=== PATIENT | female | born 1940 | race Caucasian/White ===

== ENCOUNTER 2019-08-11 21:22 | Inpatient (IN) | payer MEDICARE, OTHER ==
[~2019-08-11] VITALS: Ht 149.9 cm; Wt 46.9 kg
[2019-08-11] MEDS ORDERED: SODIUM CHLORIDE 0.9% 1000ML 1,000 ML IV STA (21:50)
[2019-08-11] MEDS ORDERED: CEFTRIAXONE SOD 1 GM/NS 50 ML 50 ML IV ONE (22:00)
[2019-08-11 22:09] LABS: BASOPHILS % 0.3 % (0.0-1.0); EOSINOPHILS # (AUTO) 0.1 (0.0-0.4); EOSINOPHILS % 0.7 % (0.0-6.0); HEMATOCRIT 36.4 % (34.2-44.1); HEMOGLOBIN 11.7 g/dL (12.0-16.0); LYMPHOCYTES % 11.5 % (18.0-39.1); MEAN CORPUSCULAR HEMOGLOBIN 29.3 pg (28-32); MEAN CORPUSCULAR HGB CONC 32.1 g/dL (31-35); MONOCYTES # (AUTO) 1.2 (0.2-0.8); MONOCYTES % 13.5 % (4.4-11.3); NEUTROPHILS # (AUTO) 6.6 (2.1-6.9); NEUTROPHILS % 73.7 % (38.7-80.0); PLATELET COUNT 279 x10e3/uL (140-360); RED CELL DISTRIBUTION WIDTH 15.9 % (11.7-14.4)
[2019-08-11 22:29] LABS: ALANINE AMINOTRANSFERASE 27 IU/L (0-55); ALBUMIN 3.8 g/dL (3.5-5.0); ALBUMIN/GLOBULIN RATIO 1.4 (0.8-2.0); ALKALINE PHOSPHATASE 86 IU/L (40-150); ANION GAP 16.4 mmol/L (8-16); BLOOD UREA NITROGEN 16 mg/dL (7-26); BUN/CREATININE RATIO 21 (6-25); CALCIUM 9.5 mg/dL (8.4-10.2); CARBON DIOXIDE 26 mmol/L (22-29); CHLORIDE 106 mmol/L (98-107); CREATINE KINASE 151 IU/L (29-168); CREATININE, SERUM 0.77 mg/dL (0.57-1.11); EST GLOMERULAR FILTRATION RATE > 60 ML/MIN (60-); GLUCOSE 97 mg/dL (74-118); POTASSIUM 3.4 mmol/L (3.5-5.1); SODIUM 145 mmol/L (136-145)
[2019-08-11 22:57] LABS: CLARITY,URINE CLOUDY (CLEAR); LEUKOCYTE ESTERASE ,URINE TRACE (NEGATIVE)
[2019-08-11 22:58] LABS: BACTERIA,URINE MANY /HPF; BILIRUBIN,URINE SMALL (NEGATIVE); COLOR,URINE AMBER (YELLOW); EPITHELIAL CELLS,URINE MANY /LPF; KETONES,URINE 1+ (NEGATIVE); NITRITE,URINE NEGATIVE (NEGATIVE); PROTEIN,URINE DIPSTICK 1+ (NEGATIVE); URINE UROBILINOGEN 0.2 mg/dL (0.2 - 1); WBC,URINE (MAN) >50 /HPF (0-5)
[2019-08-12] VITALS (9 sets, daily range): BP systolic 125–170; BP diastolic 43–84
--- NOTE | 2019-08-12 00:06 | NUR ---
patient is a new admit that arrived via stretcher. patient is awake and talking. patient has been transferred into the bed. bed is in lowest position and call light is within reach. will continue to monitor patient.
[2019-08-12] MEDS ORDERED: LOPERAMIDE2 MG PO (01:11)
[2019-08-12] MEDS ORDERED: DOCUSATE SODIU100 MG PO (01:11)
[2019-08-12] MEDS ORDERED: LEVOTHYROXINE88 MCG PO (01:11)
[2019-08-12] MEDS ORDERED: ALPRAZOLAM0.25 MG PO (01:11)
[2019-08-12] MEDS ORDERED: MECLIZINE HCL12.5 MG PO (01:11)
[2019-08-12] MEDS ORDERED: POTASSIUM CHLO10 ME1 PO (01:11)
[2019-08-12] MEDS ORDERED: PROPRANOLOL HCL10 MG PO (01:11)
[2019-08-12] MEDS ORDERED: LEXAPRO5 MG PO (01:11)
--- NOTE | 2019-08-12 06:42 | NUR ---
PATIENT IS RESTING COMFORTABLY IN THE BED. NO DISTRESS NOTED. CALL MOSQUEDA IS WITHIN REACH.
--- NOTE | 2019-08-12 07:10 | NUR ---
Received patient lying in bed with eyes open. Respiration even and unlabored without SOB. Call light in reach.
[2019-08-12 07:16] LABS: BASOPHILS % 0.4 % (0.0-1.0); EOSINOPHILS # (AUTO) 0.1 (0.0-0.4); EOSINOPHILS % 1.8 % (0.0-6.0); HEMATOCRIT 32.7 % (34.2-44.1); HEMOGLOBIN 10.5 g/dL (12.0-16.0); LYMPHOCYTES % 14.1 % (18.0-39.1); MEAN CORPUSCULAR HGB CONC 32.1 g/dL (31-35); MEAN CORPUSCULAR VOLUME 90.3 fL (81-99); MONOCYTES # (AUTO) 1.1 (0.2-0.8); MONOCYTES % 15.5 % (4.4-11.3); NEUTROPHILS # (AUTO) 4.8 (2.1-6.9); NEUTROPHILS % 67.6 % (38.7-80.0); PLATELET COUNT 234 x10e3/uL (140-360); RED BLOOD COUNT 3.62 x10e6/uL (3.6-5.1); RED CELL DISTRIBUTION WIDTH 15.9 % (11.7-14.4)
[2019-08-12 07:36] LABS: ALANINE AMINOTRANSFERASE 22 IU/L (0-55); ALBUMIN 3.1 g/dL (3.5-5.0); ALBUMIN/GLOBULIN RATIO 1.4 (0.8-2.0); ALKALINE PHOSPHATASE 67 IU/L (40-150); ANION GAP 10.3 mmol/L (8-16); BLOOD UREA NITROGEN 10 mg/dL (7-26); BUN/CREATININE RATIO 16 (6-25); CALCIUM 8.3 mg/dL (8.4-10.2); CARBON DIOXIDE 27 mmol/L (22-29); CHLORIDE 109 mmol/L (98-107); CREATININE, SERUM 0.61 mg/dL (0.57-1.11); EST GLOMERULAR FILTRATION RATE > 60 ML/MIN (60-); GLUCOSE 94 mg/dL (74-118); POTASSIUM 3.3 mmol/L (3.5-5.1); SODIUM 143 mmol/L (136-145)
[2019-08-12 11:15] LABS: CHOL/HDL RATIO 2.3 (3.0-3.6)
[2019-08-12 11:35] LABS: THYROID STIMULATING HORMONE 4.091 uIU/mL (0.350-4.940)
--- NOTE | 2019-08-12 13:26 | Consultation ---
DATE OF CONSULTATION: 08/12/2019 Initial EP Consultation REASON FOR CONSULTATION: Complete heart block. HISTORY OF PRESENT ILLNESS: Ms. Fernández is a 79-year-old woman with history of hypertension and hyperlipidemia, who presents to the hospital after having a change of mental status with hallucinations and she ultimately was diagnosed with urinary tract infection. On presentation, the patient was noted to have sinus bradycardia with heart rate approximately in the 40s, which converted to a complete heart block with a narrow complex escape rhythm. She denies having any chest pain, palpitations, syncopal episode, lightheadedness, or dizziness. She currently has no complaints. REVIEW OF SYSTEMS: She denies having any fevers, chills, lightheadedness, dizziness, discharge of the eyes, nose or mouth, swollen lymph nodes in neck or groin, chest pain, palpitations, shortness of breath, coughing, abdominal pain, nausea, vomiting, dysuria, hematuria, swelling in the joints, joint pain, numbness, tingling, weakness, skin rashes, ulcers, swelling of the legs and arms, depression or anxiety. PAST MEDICAL HISTORY: As noted above. PAST SURGICAL HISTORY: The patient has not had any cardiac surgeries. SOCIAL HISTORY: She does not drink any alcohol, smoke any cigarettes, or use any illicit drugs. FAMILY HISTORY: Significant for coronary artery disease in her family. ALLERGIES: NO KNOWN DRUG ALLERGIES. MEDICATIONS: None. The patient currently is getting ceftriaxone. PHYSICAL EXAMINATION: VITAL SIGNS: Temperature is 98.1, heart rate is currently in the 40s and complete heart block with a narrow junctional escape rhythm, blood pressure is 127/55, and respiratory rate is 12. GENERAL: No acute distress. Alert, awake, and oriented x3. HEENT: Normocephalic and atraumatic. Pupils are equal and reactive to light. LYMPH NODES: No supraclavicular or submandibular lymphadenopathy appreciated. CVS: S1 and S2. Bradycardic. RESPIRATORY: Good air entry globally. No wheezing. GI: Abdomen is soft and nontender. : No bladder fullness. No CVA tenderness. MUSCULOSKELETAL: No effusions or erythema noted in the knees or elbows bilaterally. NEURO: Moves all extremities spontaneously. No focal deficits. EXTREMITIES: No edema in lower extremities or upper extremities bilaterally. SKIN: No bruising or ulcers noted. PSYCH: Mood is normal. Answers questions appropriately. LABORATORY DATA: Creatinine is 0.61. TSH is normal. Platelet is 234. COVID is negative. Transthoracic echocardiogram demonstrates normal left ventricular ejection fraction of 65%. ASSESSMENT AND PLAN: Ms. Fernández is a 79-year-old woman with history of hypertension and hyperlipidemia, who presents to the hospital with hallucinations and urinary tract infection. She is incidentally noted to have complete heart block. For now, junctional escape rhythm. I have discussed the findings with the patient as well as her nephew by telephone Alvaro and described the treatment modalities. For this, the patient will require a pacemaker implantation for a reversible bradycardia and I described the procedure in detail including the indications, risks, benefits, and alternatives. Alvaro has had all his questions answered in satisfied manner and he is agreeable for us to pursue a pacemaker placement. The patient currently is stable with a narrow escape rhythm and so we can proceed with placing this pacemaker tomorrow. If the patient becomes hemodynamically unstable, then we can urgently place considering that. Thank you very much for allowing me to participate in Ms. Fernández's care. Please feel free to call if questions. DO ROBYN ALBRECHT/LUIS /[id number]
--- NOTE | 2019-08-12 14:00 | NUR ---
20 g PIV to left AC is completely dislodge. Attempted to start an IV, the patient refused.
--- NOTE | 2019-08-12 14:00 | NUR ---
Alvaro Burch, patient's nephew had discuss with the family members that it's okay for the patient to go to [facility] if needed.
[2019-08-12] MEDS ORDERED: POTASSIUM CHLORIDE 20 MEQ TAB CR PO NR (14:17)
[2019-08-12] MEDS: POTASSIUM CHLORIDE 20 MEQ TAB CR PO NR ×4 (16:20→16:55)
[2019-08-12] MEDS: ALPRAZOLAM 0.25 MG TAB PO PRN (16:21)
--- NOTE | 2019-08-12 18:51 | NUR ---
Report given to shift production supervisor. Patient in the room with a sitter at this time.
[2019-08-13] VITALS (7 sets, daily range): BP systolic 117–158; BP diastolic 54–61
[2019-08-13 05:55] LABS: BASOPHILS % 0.1 % (0.0-1.0); EOSINOPHILS # (AUTO) 0.1 (0.0-0.4); EOSINOPHILS % 1.8 % (0.0-6.0); LYMPHOCYTES % 13.9 % (18.0-39.1); MEAN CORPUSCULAR HEMOGLOBIN 29.3 pg (28-32); MEAN CORPUSCULAR HGB CONC 32.3 g/dL (31-35); MEAN CORPUSCULAR VOLUME 90.9 fL (81-99); MONOCYTES % 13.9 % (4.4-11.3); PLATELET COUNT 220 x10e3/uL (140-360); RED BLOOD COUNT 3.41 x10e6/uL (3.6-5.1); RED CELL DISTRIBUTION WIDTH 15.9 % (11.7-14.4)
[2019-08-13 05:58] LABS: PROTHROMBIN TIME 13.8 seconds (11.9-14.5)
[2019-08-13 05:59] LABS: PARTIAL THROMBOPLASTIN TIME 28.1 seconds (23.8-35.5)
[2019-08-13 06:06] LABS: ANION GAP 8.8 mmol/L (8-16); BLOOD UREA NITROGEN 8 mg/dL (7-26); BUN/CREATININE RATIO 13 (6-25); CALCIUM 8.2 mg/dL (8.4-10.2); CARBON DIOXIDE 29 mmol/L (22-29); CHLORIDE 108 mmol/L (98-107); CREATININE, SERUM 0.61 mg/dL (0.57-1.11); EST GLOMERULAR FILTRATION RATE > 60 ML/MIN (60-); GLUCOSE 90 mg/dL (74-118); POTASSIUM 3.8 mmol/L (3.5-5.1); SODIUM 142 mmol/L (136-145)
[2019-08-13] MEDS: LEVOTHYROXINE SODIUM 88 MCG TAB PO SCH (06:20)
--- NOTE | 2019-08-13 06:36 | NUR ---
MD has been notified of families decision to make patient a DNR. doctor agrees with families decision.
--- NOTE | 2019-08-13 07:00 | NUR ---
BEDSIDE SHIFT REPORT RECEIVED FROM ASSOCIATE PRODUCER RN [facility]. PT DENIES NEEDS AT THIS TIME/.
--- NOTE | 2019-08-13 07:15 | NUR ---
patient is resting comfortably in the bed. bed is in lowest position and call light is within reach.
[2019-08-13] MEDS: ESCITALOPRAM OXALATE 10 MG TAB PO SCH (09:06)
[2019-08-13] MEDS ORDERED: POTASSIUM CHLORIDE 20 MEQ TAB CR PO ONE (10:00)
[2019-08-13] MEDS ORDERED: VANCOMYCIN 1GM/NS 250 ML 250 ML IV ONE (12:00)
[2019-08-13] MEDS ORDERED: RISPERIDONE 0.5 MG TAB PO PRN (12:45)
[2019-08-13] MEDS: ALPRAZOLAM 0.25 MG TAB PO PRN (13:28)
[2019-08-13] MEDS: LORAZEPAM INJ 2 MG/ML VIAL IM PRN ×2 (14:46→23:30)
[2019-08-13] MEDS ORDERED: RISPERIDONE 0.5 MG TAB PO SCH (21:00)
--- NOTE | 2019-08-13 21:17 | Consultation ---
DATE OF CONSULTATION: 08/13/2019 Psychiatric Consultation REASON FOR CONSULTATION: To evaluate the patient's psychosis. HISTORY OF PRESENT ILLNESS: The patient is a 79-year-old female, admitted to the hospital for altered mental status and UTI. Psychiatric consultation is called to evaluate the patient's psychosis. As per medical record, the patient has history of hypertension and hyperlipidemia. She was found to have complete heart block. Family members have declined pacemaker placement at this time and they want her to get Inpatient Psychiatry for her psychosis. Before assessment, I discussed with the attending regarding her history and her current psychosis. The patient is found to be in the room with a sitter. She is sitting up in the couch and eating lunch, a sandwich. She is calm. She is not agitated or combative. The patient does not know the current year or the current president. She is paranoid and delusional. She claims that her niece whom she lives with has been threatening to kill her and put her in the coffin. She is unable to elaborate why. She has been this way. She reports depression and anxiety, again unable to elaborate why. She denies any suicidal or homicidal ideation. She reports having auditory hallucination mostly at nighttime with the voices telling her to hurt herself. She admits that at times she gets scared and would be hiding in a closet due to these voices. She agrees for Psychiatry to talk to her niece. I had a long discussion with the niece, who has been taking care of the patient since June 14. Prior to June 14, the patient was living with her mother; however, on June 14, the patient found her mother at home. She was then taken to the niece's house to live there. The patient became paranoid, restless at nighttime, especially evening hours she will be wandering around the house until at least 1:00 a.m. She would be telling family members that to leave the house. Niece also reports that the patient has mental disability. She is not able to read or write, has difficulty comprehending complex instructions. Other than that she is able to eat. She can cook for herself, mostly independent with her ADLs. Family members again agrees for psychiatric health and medications. PAST PSYCHIATRIC HISTORY: The patient had a previous psychotic in the past, currently taking Lexapro and Xanax p.r.n., but this is recent. As per family members, she never attempted suicide in the past. She does not drink alcohol or use any drugs. FAMILY HISTORY: Denies from the patient's standpoint. SOCIAL HISTORY: The patient lives with a niece. MENTAL STATUS EXAM: The patient is an elderly female, thin looking. Affect is blunt. Well groomed. Psychomotor state is passive. Mood is anxious and depressed. Denies suicidal or homicidal ideation. Reports intermittent hallucination. Thought process is concrete. She is delusional and paranoid. Insight and judgment are fair to limited. Memory appears to be grossly impaired. CURRENT MEDICATION: 1. Lexapro 5 mg p.o. daily. 2. Synthroid. 3. Xanax 0.25 b.i.d. 4. Vancomycin. LABORATORY DATA: WBC 7.18, RBC , hemoglobin 10, hematocrit 31.4, and platelets 220. Sodium 142, potassium 3.8, chloride 108, CO2 of 29, BUN 8, and creatinine 0.61. ASSESSMENT: 1. Unspecified psychosis. 2. Rule out dementia. PLAN: 1. Add Risperdal 0.25 mg p.o. at bedtime. 2. Add Risperdal 0.25 mg p.o. q.6 hours as needed. 3. Add Ativan 0.5 mg IM q.6 hours p.r.n. 4. Continue with Xanax p.r.n. 5. Continue Lexapro. 6. Monitor for agitation and psychosis. 7. Discussed with family members. Dictated by Juliet Hare PA-C Nitza Mccartney MD QTV/MODL /[id number]
--- NOTE | 2019-08-13 21:40 | NUR ---
TELEPHONE CONSENT OBTAINED WITH 2ND RN.
[2019-08-14] VITALS (9 sets, daily range): BP systolic 110–134; BP diastolic 42–60
[2019-08-14] MEDS: LEVOTHYROXINE SODIUM 88 MCG TAB PO SCH (05:46)
[2019-08-14] MEDS ORDERED: VANCOMYCIN 1GM/NS 250 ML 250 ML IV ONE (10:00)
[2019-08-14] MEDS: ESCITALOPRAM OXALATE 10 MG TAB PO SCH (10:55)
--- NOTE | 2019-08-14 11:27 | NUR ---
call to Dr. Santos to notify them of pt to have a pace maker put in. spoke with Tali.
--- NOTE | 2019-08-14 13:25 | Consultation ---
DATE OF CONSULTATION: 08/12/2019 REASON FOR CONSULTATION: Abnormal EKG. CHIEF COMPLAINT: Altered mental status, dizziness. HISTORY OF PRESENT ILLNESS: This is a 79-year-old female with history of hypertension, hyperlipidemia, hypothyroidism, anxiety, depression. The patient presents to [facility] ER with worsening confusion, dizziness. On EKG, the patient was noted in a third-degree heart block. Cardiology was consulted. The patient is seen in room. She is confused and not very well historian. Much of the information was obtained from Ana Maria, which is the patient's niece. Niece reports that the patient has been living with her since June 14 ever since the patient's mother . Has noticed the patient becomes more confused in the evenings, in which the patient was started on Lexapro by her PCP. However, the patient was noted to be with incontinent and more dizziness, therefore was brought to the emergency for further evaluation. Currently, the patient in her room and reports that she is dizzy and lightheaded. EP has been consulted. PAST MEDICAL HISTORY: Hypertension, hyperlipidemia, hypothyroidism, anxiety, depression. PAST SURGICAL HISTORY: Cholecystectomy. SOCIAL HISTORY: She lives with her niece, Ana Maria. No alcohol or tobacco use reported. FAMILY HISTORY: Mother recently on June 12, 2019, with history of CAD. Father with history of cancer. MEDICATIONS: Home medications include levothyroxine 88 mcg daily, potassium chloride 15 mEq daily, Lexapro 5 mg daily, simvastatin 10 mg daily, Xanax 0.25 mg p.r.n., propranolol 10 mg b.i.d., Claritin as needed, Colace as needed, meclizine as needed. ALLERGIES: NO KNOWN ALLERGIES. REVIEW OF SYSTEMS: Unable to obtain. The patient is confused, unreliable historian. However, does report dizziness and lightheadedness. Denies any chest pains or shortness of breath. PHYSICAL EXAMINATION: VITAL SIGNS: Height 59 inches, weight 103 pounds. Temperature 98.0, pulse 48, respiratory rate 16, blood pressure 125/50, pulse oximetry 98% on room air. GENERAL: Appears stated age, unreliable informant, reports dizziness. SKIN: No rashes or bruises noted. HEENT: Normocephalic. Pupils equal, reactive. Extraocular movements intact. Oral mucosa pink. NECK: Trachea midline. No JVD. Soft carotid bruit noted. HEART: Regular rate. Positive systolic heart murmur heard in the right upper sternal border. PMI about 5th intercostal space. LUNGS: Bilateral breath sounds clear to auscultation. Good airway entry. ABDOMEN: Soft, nontender, nondistended. No organomegaly noted. MUSCULOSKELETAL: Generalized weakness noted. +1 to 2 lower extremity edema. VASCULAR: +2 radial pulses bilaterally. +1 DP, PT pulses bilaterally. NEUROLOGIC: Cranial nerves 2 through 12 seem intact. LABORATORY DATA: Sodium 143, potassium 3.3, chloride 109, bicarbonate 27, BUN 10, creatinine 0.6, glucose 94. Troponin less than 0.001. White count 7, hemoglobin 11.7, hematocrit 36, platelets 279. ASSESSMENT: 1. Complete heart block. 2. Altered mental status. 3. History of hypertension. 4. Hypothyroidism. 5. Hyperlipidemia. PLAN: 1. The patient presents to [facility] ER with complaints of dizziness, confusion, noted to be in third-degree heart block. Cardiology was consulted. 2. Case discussed with EP. EP consulted. 3. Continue telemonitoring. 4. Check TSH. 5. We will get an echo to evaluate heart structurally. 6. We will continue to follow the patient. Thank you very much for this consult. Seen and examined Dictated by Lior Reynoso NP Tia Ferrara MD DC/LUIS /[id number] MONSTER
--- NOTE | 2019-08-14 16:01 | NUR ---
PT ON SCHEDULE FOR PACEMAKER TOMORROW AT 1PM
[2019-08-14 16:16] LABS: BILIRUBIN,URINE NEGATIVE (NEGATIVE); CLARITY,URINE SL CLOUDY (CLEAR); COLOR,URINE YELLOW (YELLOW); KETONES,URINE NEGATIVE (NEGATIVE); LEUKOCYTE ESTERASE ,URINE NEGATIVE (NEGATIVE); NITRITE,URINE NEGATIVE (NEGATIVE); PROTEIN,URINE DIPSTICK NEGATIVE (NEGATIVE); URINE UROBILINOGEN 0.2 mg/dL (0.2 - 1)
[2019-08-14 16:31] LABS: BACTERIA,URINE FEW /HPF; EPITHELIAL CELLS,URINE RARE /LPF; WBC,URINE (MAN) 0-5 /HPF (0-5)
--- NOTE | 2019-08-14 17:40 | NUR ---
spoke with Dr. Hoyos, about pt procedure tomorrow mid day.
--- NOTE | 2019-08-14 19:06 | Progress Note ---
DATE: 08/14/2019 Psychiatric Progress Note SUBJECTIVE: The patient evaluated and events noted. The patient is in the room with a sitter. She is alert, awake, and oriented to situation. She is still paranoid and delusional come at night and kill her. She still feel for her safety. Denies any hallucinations. Denies any suicidal or homicidal ideation. She appears to be anxious, but not combative or agitated. She did receive an Ativan p.r.n. IM last night at 2330. She is eating well. ASSESSMENT: 1. Unspecified psychosis. 2. Rule out dementia. PLAN: 1. To increase Risperdal 0.25 mg p.o. at bedtime to 0.5 mg p.o. at bedtime. 2. Continue with p.r.n. Risperdal. 3. Continue Ativan 0.5 mg IM q.6 hours as needed. 4. Continue Xanax p.r.n. 5. Continue Lexapro schedule. 6. Monitor for agitation and psychosis. Dictated by Juliet Hare PA-C Nitza Mccartney MD QTV/LUIS /[id number]
--- NOTE | 2019-08-14 19:26 | NUR ---
report given to oncoming nurse, walking rounds complete, pt stable at shift change.
[2019-08-14] MEDS: RISPERIDONE 0.5 MG TAB PO SCH (21:56)
[2019-08-15] MEDS: LEVOTHYROXINE SODIUM 88 MCG TAB PO SCH (04:55)
--- NOTE | 2019-08-15 07:30 | NUR ---
PT TRANSPORTED TO CLUSTER BORE OPERATOR VIA BED.
[2019-08-15 07:35] VITALS: BP 130/60
[2019-08-15] MEDS ORDERED: MIDAZOLAM HCL 2 MG/2 ML VIAL ONE (07:40)
[2019-08-15] MEDS ORDERED: LIDOCAINE HCL 2% LOCAL 20 ML VIAL ONE (07:41)
[2019-08-15] MEDS ORDERED: FENTANYL CITRATE/PF 100MCG/2 ML INJ ONE (07:41)
[2019-08-15] MEDS ORDERED: SODIUM CHLORIDE 0.9% 500ML 500 ML ONE (07:41)
[2019-08-15] MEDS ORDERED: SODIUM CHLORIDE 0.9% 1000ML 2,000 ML ONE (07:41)
[2019-08-15] MEDS ORDERED: BACITRACIN 50,000 UNIT VIAL ONE (07:42)
[2019-08-15] MEDS ORDERED: VANCOMYCIN 1GM/NS 250 ML 250 ML ONE (07:42)
--- NOTE | 2019-08-15 08:11 | NUR ---
UNABLE TO START SNF PT HAS 1 ON 1 SITTER
[2019-08-15] MEDS: ESCITALOPRAM OXALATE 10 MG TAB PO SCH (09:00)
--- NOTE | 2019-08-15 09:27 | NUR ---
CALLED FAMILY TO LET KNOW ABOUT SNF, WAS TOLD THERE WAS A POSSIBILITY FAMILY WANTED OCEANS. NEED CLARIFICATION ON FAMILY REQUEST. LEFT MESSAGE TO RETURN CALL.
--- NOTE | 2019-08-15 09:30 | NUR ---
PT RETURNRF TO ROOM VIA BED AAOX1.DRSG TO EVAN CD&I,SLING IN PLACE.
--- NOTE | 2019-08-15 10:18 | Operative Report ---
DATE OF PROCEDURE: 08/15/2019 SURGEON: DILEEP FRASER DO CLINICAL INDICATION: A 79-year-old woman with a history of hypertension, presents to the hospital with hallucinations and urinary tract infection. She was noted to have complete heart block. PROCEDURES PERFORMED: 1. Implantation of a St. Eduardo dual-chamber pacemaker. 2. Left upper extremity venogram. 3. Moderate sedation. PROCEDURE IN DETAIL: After informed consent was obtained, the patient was prepped and draped in usual manner. Moderate sedation was used for procedure and a total of 1 mg IV Versed and 25 mcg IV fentanyl were given, for a total of 45 minutes, four five. The patient is monitored by myself and nurse, and the nurse name is Leny Jackosn. Preprocedure time-out and antibiotics were given to the patient. Left upper extremity venogram was performed, which demonstrated patency of left axillary vein to the right atrium. Afterwards, 1% lidocaine was given to the left chest region and a 2 cm incision was created over the left chest. A pocket was then created over the pectoralis muscle and hemostasis was confirmed. After using modified Seldinger technique, two uncomplicated venous access was obtained and 2 wires subsequently inserted into the inferior vena cava. A 6-Vincentian peel-away sheath was inserted over one of wires and a right ventricular pacing lead was inserted through that sheath, but the right ventricular apex using a pull-out technique. The lead was screwed to myocardium, lead software tester demonstrated adequate threshold and sheath was peeled. Afterward, another 6-Vincentian peel-away sheath was inserted over the other wire and a right atrial pacing lead was inserted through the sheath about the right atrial appendage using a preformed J stylet. The lead was screwed myocardium, lead software tester demonstrated adequate threshold and sheath was peeled. Both leads were then sutured to muscle using 0 silk. Hemostasis was then confirmed. The pocket was irrigated thoroughly with antibiotic solution. The generator was brought into the field and the leads were plugged into generator. Generator and leads were then inserted into the pocket and generator was sutured to muscle using 0 silk. Then, in a standard 3-layer fashion, pocket was closed using Vicryl and skin glue was applied. At the conclusion of the procedure, the patient tolerated the procedure well without immediate complications. Fluoroscopy demonstrated normal cardiac silhouette, no evidence of pericardial effusion, no pneumothorax, no retained products within the pocket. IMPLANTED DEVICE: 1. St. Eduardo model [id number], serial #[id number]. 2. RA 2087TC/46, serial #[id number]. 3. RV 2087TC/52, serial #[id number]. MEASUREMENTS: 1. RA: 4.2 mV, 360 ohms, 0.75 V at 0.4 milliseconds. 2. RV 4 mV, 700 ohms, 0.75 V at 0.4 milliseconds. 3. Parameters DDDR 60/120. CONCLUSION: 1. Successful placement of a St. Eduardo dual-chamber pacemaker. 2. No immediate complications. POSTPROCEDURE PLAN: 1. Bed rest for 6 hours. The patient can resume her prior diet. 2. One-view chest x-ray and EKG to be obtained after the procedure. 3. Postprocedure antibiotics and pain medication to be given. 4. Incision to be kept absolutely dry for two weeks. 5. Left arm to stay in a sling over this stay, and tomorrow morning the patient can remove the arm from the sling, and in next two weeks use the arm for daily activities, do not lift over shoulder and directions, do not lift more than 10 pounds of weight. Put the arm in a sling while sleeping at night. 6. When the patient is to be discharge, please follow up with Dr. Cabrera in clinic in two weeks. DO ROBYN ALBRECHT/MODL /[id number]
[2019-08-15 10:30] VITALS: BP 138/63
[2019-08-15 12:00] VITALS: BP 112/55
--- NOTE | 2019-08-15 13:10 | NUR ---
SPOKE WITH FAMILY REP THE WANT IS TO GO [facility] AND IF THEY DENY THEN WILL CONSIDER SNF AT THAT TIME.
[2019-08-15] MEDS: ACETAMINOPHEN 325 MG TAB PO PRN (14:45)
--- NOTE | 2019-08-15 14:45 | NUR ---
pt c/o lt shoulder pain medicated.
[2019-08-15 16:08] VITALS: BP 129/64
[2019-08-15] MEDS: MINOCYCLINE HCL 50 MG CAP PO SCH (17:00)
--- NOTE | 2019-08-15 17:37 | NUR ---
PT UP IN BED ,DENIES PAIN,NO DISTRESS NOTED,NO AGITATION NOTED.1:1 SITTER AT BEDSIDE
--- NOTE | 2019-08-15 18:00 | Progress Note ---
DATE: 08/15/2019 Psychiatric Progress Note SUBJECTIVE: The patient evaluated and events noted. The patient is in the room, sitter is near by, and she is calm. She is not agitated or combative. She is still delusional, believes the Tricia came to her room at night and she was hiding under the sink. She does not know the year. She is smiling, laughing, and pleasant. She denies any suicidal or homicidal ideation. She denies any hallucination. She denies any problems with sleep or appetite. As per nurse, she had a pacemaker placed today. Vital signs are improved, especially heart rate. She has not received any p.r.n. IM medication since before. ASSESSMENT: 1. Unspecified psychosis. 2. Rule out dementia. PLAN: 1. Continue with Risperdal 0.5 mg p.o. at bedtime. 2. Continue with p.r.n. Risperdal. 3. Continue Ativan p.r.n. IM. 4. Continue Xanax p.r.n. 5. Continue Lexapro. 6. Monitor for agitation and psychosis. The patient may need inpatient psychiatry. Case management is speaking with family members as per the request. Dictated by Juliet Hare PA-C Nitza Mccartney MD QTV/MODL /[id number]
[2019-08-15 19:54] VITALS: BP 131/74
[2019-08-15 21:00] VITALS: BP 131/74
[2019-08-15] MEDS: RISPERIDONE 0.5 MG TAB PO SCH (22:19)
[2019-08-16] VITALS: BP 128/70
[2019-08-16 04:00] VITALS: BP 157/79
[2019-08-16] MEDS: ACETAMINOPHEN 325 MG TAB PO PRN (04:32)
[2019-08-16] MEDS: LEVOTHYROXINE SODIUM 88 MCG TAB PO SCH (05:06)
[2019-08-16 07:50] VITALS: BP 142/80
[2019-08-16] MEDS: MINOCYCLINE HCL 50 MG CAP PO SCH ×2 (07:58→16:50)
[2019-08-16] MEDS: ESCITALOPRAM OXALATE 10 MG TAB PO SCH (07:58)
[2019-08-16 08:21] VITALS: BP 142/80
[2019-08-16 11:35] VITALS: BP 110/66
--- NOTE | 2019-08-16 13:55 | NUR ---
CLINICALS SENT TO [facility]
[2019-08-16 15:44] VITALS: BP 129/73
--- NOTE | 2019-08-16 15:55 | NUR ---
Report given to Radha KIRK with inpatient psych of patient's status Addendum: 08/16/19 at 1950 by EDITH PATE RN Report given to Tiffany KIRK
--- NOTE | 2019-08-16 16:02 | NUR ---
NURSE TO NURSE COMPLETED, FAXED MEDICAL CLEARANCE FORM SENT CHELSI PHONE NUMBER FOR DOC TO DOC. CALLED REP, SHE WILL CONTACT ME WHEN WE ARE ABLE TO SEND PT.
--- NOTE | 2019-08-16 16:29 | NUR ---
PT ACCEPTED TO [facility], LET NURSE KNOW AND WITH NURSE CALLED DR EDWARDS AND HE APPROVED VIA PHONE TO US BOTH THE DISCHARGE.
--- NOTE | 2019-08-16 18:25 | NUR ---
Left FA IV discontinued. No signs of infiltration noted. Placed 2x2 gauze and coban. Patient take via stretcher by EMS. AAOX2 to person, place. Respirations even and unlabored. Left chest dressing clean, dry, and intact. Sling to right arm. Respirations even and unlabored. Transfer package given to EMS. All personal belongings taken with patient.
--- NOTE | 2019-08-17 03:36 | Discharge Summary ---
FINAL DIAGNOSIS: Visual hallucination. SECONDARY DIAGNOSES: 1. Complete heart block. 2. Hypothyroidism. CONSULTANTS: 1. Dr. Ferrara, Cardiology. 2. Dr. Kristine Hoyos, EP house steward/stewardess. 3. Dr. Mccartney, psychiatrist. PROCEDURES/STUDIES PERFORMED: 1. Echocardiogram. 2. Carotid Doppler. 3. Permanent pacemaker. HISTORY: Per H and P. HOSPITAL COURSE: The patient does not have a UTI. Her urine sample was not a clean catch. Subsequently, UA was repeated and it was negative. Empirically, she received IV vancomycin for the enterococcus that showed up on the 1st urine culture. The patient was found to have complete heart block. TSH was normal. The patient underwent pacemaker placement. The patient was seen by a psychiatrist for visual hallucination and has being discharged to [facility]. The patient will continue minocycline for another five days. The patient was seen and examined today. It took 32 minutes total to discharge this patient. CONDITION ON DISCHARGE: Improved. DISCHARGE MEDICATIONS: Please see medication reconciliation form. MD GUSTAVO Thayer/LUIS /[id number]
== END 2019-08-16 18:25 | DRG 243 ==
LOC: ER 21:22 → INTOOBSV 23:28 → ERHOLD 23:28 → MED/SURG2 08-12 00:06 → OBSVTOIN 08-13 10:02
PROVIDERS: ADMIT Internal Medicine; ATTEND Internal Medicine
PROC: 0JH606Z Insertion of Pacemaker, Dual Chamber into Chest Subcutaneous Tissue and Fascia, Open Approach (ICD-10-PCS; principal; 2019-08-15)
PROC: 02HK3JZ Insertion of Pacemaker Lead into Right Ventricle, Percutaneous Approach (ICD-10-PCS; 2019-08-15)
PROC: 02H63JZ Insertion of Pacemaker Lead into Right Atrium, Percutaneous Approach (ICD-10-PCS; 2019-08-15)
DX: I44.2 Atrioventricular block, complete (principal); F23 Brief psychotic disorder; F32.9 Major depressive disorder, single episode, unspecified; F29 Unspecified psychosis not due to a substance or known physiological condition; E03.9 Hypothyroidism, unspecified; E78.5 Hyperlipidemia, unspecified
CPT/HCPCS: 33208; 36415; 80048; 80053; 80061; 81001; 82550; 82553; 82948; 83605; 83735; 84443; 84484; 85025; 85610; 85730; 87040; 87086; 87186; 87635; 93005; 93306; 93880; 99152; 99153; 99284; G0378; J0696; J2001; J2060; J2250; J3010; J3370; J7030; J7040